=== PATIENT | female | born 1965 | race African-American/Black ===

== ENCOUNTER 2020-04-13 23:24 | Emergency (ER) | payer OTHER ==
[~2020-04-13] VITALS: Ht 172.7 cm; Wt 91.6 kg
[2020-04-13] MEDS ORDERED: SEROQUEL 50 MG50 M1 PO (23:32)
[2020-04-13] MEDS ORDERED: SIMVASTATIN80 MG PO (23:33)
[2020-04-13] MEDS ORDERED: ASA81BEC PO (23:33)
[2020-04-13] MEDS ORDERED: SUPER THERAVIT1 EACH PO (23:33)
[2020-04-14 00:08] LABS: BASOPHILS 1.1 % (0.0-2.0); EOSINOPHILS 9.5 % (0.0-3.0); HEMATOCRIT 41.3 % (37.0-47.0); HEMOGLOBIN 13.3 gm/dL (12.0-15.0); LYMPHOCYTES 34.7 % (24.0-44.0); MCH 27.1 pg (26.0-34.0); MCHC 32.1 g/dL (28.0-37.0); MCV 84.4 fL (80.0-100.0); MONOCYTES 9.9 % (1.0-8.0); PLATELET COUNT 280 thou/uL (150-400); POLYS 44.8 % (36.0-66.0); RDW 14.9 % (10.5-14.5); WBC 6.6 thou/uL (4.0-11.0)
[2020-04-14 00:15] LABS: ANION GAP 10 mmol/L (7-16); BUN 15 mg/dL (7-18); CALCIUM 8.6 mg/dL (8.5-10.1); CHLORIDE 103 mmol/L (98-107); CO2 27 mmol/L (21-32); CREATININE 0.9 mg/dL (0.6-1.0); GLUCOSE 121 mg/dL (74-106); POTASSIUM 3.8 mmol/L (3.5-5.1); SODIUM 140 mmol/L (136-145)
[2020-04-14 00:23] LABS: TROPONIN-I <0.06 ng/mL (<0.06)
[2020-04-14 01:06] VITALS: BP 144/91
--- NOTE | 2020-04-14 07:28 | EKG ---
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 Feeder: [facility] : 1965 Requested By: Trey Harden Order Number: [id number] MD: Alex Golden Measurements Intervals [place] Rate: 89 P: 63 [place]: 144 QRS: -23 QRSD: 88 T: 34 QT: 377 QTc: 459 Interpretive Statements Sinus rhythm Borderline left axis deviation RSR' in V1 or V2, right VCD or RVH No previous ECG available for comparison Electronically Signed On 04-14-2020 7:27:50 [employer] by Alex Golden [email or web address] <ELECTRONICALLY SIGNED> By: Alex Golden MD, FACC 04/14/20 0727 233 30 Alex Golden MD, [facility] /EPI
== END 2020-04-14 01:18 | disposition home or self-care (01) ==
LOC: ER 23:24
PROVIDERS: Emergency Medicine
DX: R20.2 Paresthesia of skin (principal); R07.89 Other chest pain; R20.0 Anesthesia of skin; N64.4 Mastodynia; F31.9 Bipolar disorder, unspecified; E78.00 Pure hypercholesterolemia, unspecified; Z88.0 Allergy status to penicillin; Z79.899 Other long term (current) drug therapy; Z79.82 Long term (current) use of aspirin